=== PATIENT | female | born 1990 | race Caucasian/White ===

== ENCOUNTER 2019-12-23 20:18 | Emergency (ER) | payer BC ==
[2019-12-23] MEDS ORDERED: methylPREDNISolone SUCCINATE 125 MG/2 ML VIAL IVP STA (20:25)
[2019-12-23] MEDS ORDERED: IPRATROPIUM/ALBUTEROL 3 ML NEB INH STA ×3 (20:28→20:32)
[2019-12-23] MEDS ORDERED: ALBUTEROL NEB 2.5 MG/3 ML INH STA ×3 (20:29→20:30)
[2019-12-23] MEDS ORDERED: IPRATROPIUM/ALBUTEROL 3 ML NEB INH ONE (20:29)
[2019-12-23] MEDS ORDERED: ALBUTEROL NEB 2.5 MG/3 ML INH ONE (20:29)
--- NOTE | 2019-12-23 20:33 | ED Physician Documentation ---
History of Present Illness - Stated complaint Stated Complaint: SOA - Chief complaint Chief Complaint: Resp - History obtained from History obtained from: Patient - Additonal information Additional information: The patient presents with complaints of shortness of breath. This started suddenly about 15 minutes prior to arrival. She has a history of asthma. She has had chest tightness, shortness of breath and wheezing. She has had similar events in the past.She is visiting here from [place]. She attributes her symptoms to being exposed to marijuana smoke from family that she is visiting. She did not bring her albuterol with her. She has had to be intubated in the past. Review of Systems Ten Systems: 10 systems reviewed and negative Constitutional: reports: Reviewed and negative Eyes: reports: Reviewed and negative Ears: reports: Reviewed and negative Nose: reports: Reviewed and negative Throat: reports: Reviewed and negative Cardiac: reports: Reviewed and negative Respiratory: reports: Dyspnea, Cough, Wheezing. denies: Hemoptysis, Other GI: reports: Reviewed and negative : reports: Reviewed and negative Skin: reports: Reviewed and negative Musculoskeletal: reports: Reviewed and negative Neurologic: reports: Reviewed and negative Psychiatric: reports: Reviewed and negative Endocrine: reports: Reviewed and negative Immunocompromised: reports: Reviewed and negative PD PAST MEDICAL HISTORY - Present Medications Home Medications: Ambulatory Orders Medication Instructions Recorded Confirmed Albuterol Sulf [Ventolin Hfa 2 puffs INH Q4HR PRN #1 inhaler 12/23/19 Inhaler] predniSONE [Prednisone] 60 mg PO DAILY 5 Days #15 tablet 12/23/19 - Allergies Allergies/Adverse Reactions: Allergies Allergy/AdvReac Type Severity Reaction Status Date / Time Penicillins Allergy Unknown Verified 12/23/19 20:30 PD ED PE NORMAL - Vitals Vital signs reviewed: Yes - General General: Alert and oriented X 3, No acute distress - HEENT HEENT: PERRL - Neck Neck: Supple, no meningeal sign - Cardiac Cardiac: RRR, No murmur, Other (Tachycardic.) - Respiratory Respiratory: Other (Decreased air entry, diffuse wheezes, tachypnea.) - Abdomen Abdomen: Normal bowel sounds, Soft, Non tender, Non distended - Derm Derm: Warm and dry - Extremities Extremities: No deformity - Neuro Neuro: Alert and oriented X 3 - Psych Psych: Normal mood, Normal affect Results - Vitals Vitals: Vital Signs - 24 hr 12/23/19 12/23/19 12/23/19 20:26 20:31 21:03 Temperature 36.2 C L 36.2 C L Heart Rate 108 H 108 H 117 H Respiratory 22 22 17 Rate Blood Pressure 155/90 H 155/90 H 141/89 H O2 Saturation 100 100 100 12/23/19 21:32 Temperature Heart Rate 115 H Respiratory 18 Rate Blood Pressure 139/100 H O2 Saturation 98 Oxygen O2 Source Room air - Labs Labs: Laboratory Tests 12/23/19 12/23/19 20:28 20:28 WBC 10.7 RBC 4.47 Hgb 13.8 Hct 39.0 MCV 87.2 MCH 30.9 MCHC 35.4 RDW 12.1 Plt Count 354 MPV 9.4 Neut # (Auto) 6.6 Lymph # (Auto) 3.0 [place] # (Auto) 0.9 Eos # (Auto) 0.2 Baso # (Auto) 0.0 Absolute Nucleated RBC 0.00 Nucleated RBC % 0.0 Sodium 136 Potassium 3.3 L Chloride 101 Carbon Dioxide 21 Anion Gap 14.0 H BUN 12 Creatinine 0.7 Estimated GFR (MDRD) 100 Glucose 141 H Calcium 9.2 Magnesium 1.7 Total Bilirubin 0.4 AST 30 ALT 33 Alkaline Phosphatase 53 Total Protein 7.5 Albumin 4.3 Globulin 3.2 Albumin/Globulin Ratio 1.3 - Rads (name of study) chest Radiology: Final report received, EMP read contemporaneously, Other (No acute cardiopulmonary abnormality identified.) PD MEDICAL DECISION MAKING - ED course Complexity details: re-evaluated patient (On Reevaluation, the patient reported feeling much more comfortable. Examination of her lungs showed improved air entry and no further wheezing. She appeared comfortable. She continued to be tachycardic.), considered differential, other Departure - Departure Disposition: Home, Self Care Clinical Impression: Asthma Qualifiers: Asthma severity: unspecified severity Asthma persistence: intermittent Asthma complication type: with acute exacerbation Qualified Code(s): J45.21 - Mild intermittent asthma with (acute) exacerbation Condition: Good Instructions: ED Asthma Acute Ch Prescriptions: Albuterol Sulf [Ventolin Hfa Inhaler] 2 puffs INH Q4HR PRN #1 inhaler PRN Reason: Shortness Of Air/Wheezing predniSONE [Prednisone] 60 mg PO DAILY 5 Days #15 tablet Comments: Schedule a follow-up appointment with your primary care provider so that you may be reevaluated when you return home. Return to the emergency room immediately if your symptoms worsen or if new symptoms develop.
[2019-12-23 20:34] LABS: BASOPHILS % (AUTO) 0.4 %; EOSINOPHILS # (AUTO) 0.2 10^3/uL (0.0-0.7); EOSINOPHILS % (AUTO) 1.9 %; HGB - HEMOGLOBIN 13.8 g/dL (12.0-16.0); LYMPHOCYTES % (AUTO) 28.2 %; MEAN CORPUSCULAR HEMOGLOBIN 30.9 pg (27.0-31.0); MEAN CORPUSCULAR HGB CONC 35.4 g/dL (32.0-36.0); MEAN CORPUSCULAR VOLUME 87.2 fL (81.0-99.0); MEAN PLATELET VOLUME 9.4 fL (7.9-10.8); MONOCYTES # (AUTO) 0.9 10^3/uL (0.0-1.0); MONOCYTES % (AUTO) 7.9 %; NEUTROPHILS # (AUTO) 6.6 10^3/uL (1.5-6.6); NEUTROPHILS % (AUTO) 61.2 %; PLT - PLATELET COUNT 354 10^3/uL (130-450); RED BLOOD COUNT 4.47 10^6/uL (4.20-5.40); RED CELL DISTRIBUTION WIDTH 12.1 % (12.0-15.0); WHITE BLOOD COUNT 10.7 x10^3/uL (4.8-10.8)
[2019-12-23 20:45] LABS: ALBUMIN 4.3 g/dL (3.2-5.5); ALBUMIN/GLOBULIN RATIO 1.3 (1.0-2.2); BILIRUBIN,TOTAL 0.4 mg/dL (0.2-1.0); CALCIUM 9.2 mg/dL (8.5-10.3); CREATININE 0.7 mg/dL (0.4-1.0); MAGNESIUM 1.7 mg/dL (1.7-2.8); TOTAL PROTEIN 7.5 g/dL (6.7-8.2)
--- NOTE | 2019-12-23 20:55 | XRAY Report ---
PROCEDURE: Chest 1 View X-Ray INDICATIONS: SOB TECHNIQUE: One view of the chest was acquired. COMPARISON: None. FINDINGS: Surgical changes and devices: None. Lungs and pleura: No pleural effusions or pneumothorax. Lungs are clear. Mediastinum: Mediastinal contours appear normal. Heart size is normal. Bones and chest wall: No suspicious bony lesions. Overlying soft tissues appear unremarkable. IMPRESSION: No acute cardiopulmonary abnormality identified. Reviewed by: Umang Nassar MD on 12/23/2019 8:54 PM PDT Approved by: Umang Nassar MD on 12/23/2019 8:54 PM PDT Station ID: [id number]
[2019-12-23 21:33] VITALS: BP 139/100
== END 2019-12-23 21:48 | disposition home or self-care (01) ==
LOC: ED 20:18
DX: J45.21 Mild intermittent asthma with (acute) exacerbation (principal)
CPT/HCPCS: 36415; 71045; 80053; 83735; 85025; 96374; 99283